=== PATIENT | male | born 1970 | race Caucasian/White ===

== ENCOUNTER 2017-06-26 08:12 | Inpatient (IN) | payer MEDICAID ==
[~2017-06-26] VITALS: Ht 162.6 cm; Wt 68.5 kg
[2017-06-26] MEDS ORDERED: ONDANSETRON 4 MG/2 ML VIAL ONE (08:43)
[2017-06-26] MEDS ORDERED: MORPHINE SULFATE 4 MG/1 ML DISP.SYRIN ONE (08:43)
[2017-06-26] MEDS ORDERED: MORPHINE SULFATE 2 MG/1 ML DISP.SYRIN ONE (08:43)
[2017-06-26] MEDS ORDERED: MORPHINE SULFATE 2 MG/1 ML DISP.SYRIN IV ONE (08:45)
[2017-06-26] MEDS ORDERED: IV NORMAL SALINE 1000 ML BAG IV ONE (08:45)
[2017-06-26] MEDS ORDERED: ONDANSETRON 4 MG/2 ML VIAL IV ONE (08:45)
--- NOTE | 2017-06-26 08:51 | NUR ---
PT IS IN ROOM #1B. DR JENSEN EVALUATED THE PT.
[2017-06-26 09:14] LABS: BASOPHILS % (AUTO) 0.1 % (0.0-2.0); CREATININE 0.7 mg/dL (0.6-1.3); EOSINOPHILS % (AUTO) 0.1 % (0.0-7.0); HEMATOCRIT 53.1 % (36.7-47.1); HEMOGLOBIN 17.9 g/dL (12.5-16.3); LYMPHOCYTES # (AUTO) 0.8 K/uL (20.0-40.0); LYMPHOCYTES % (AUTO) 4.4 % (20.5-51.5); MEAN CORPUSCULAR HEMOGLOBIN 29.6 uug (23.8-33.4); MEAN CORPUSCULAR HGB CONC 34 g/dL (32.5-36.3); MEAN CORPUSCULAR VOLUME 88.2 fL (73.0-96.2); MONOCYTES # (AUTO) 1.2 K/uL (2.0-10.0); MONOCYTES % (AUTO) 6.5 % (0.0-11.0); NEUTROPHILS # (AUTO) 16.4 K/uL (1.8-8.9); NEUTROPHILS % (AUTO) 88.9 % (38.5-71.5); PLATELET COUNT (AUTO) 245 K/uL (152-348); RED BLOOD CELL COUNT(AUTO) 6.03 MIL/uL (4.06-5.63); WHITE BLOOD COUNT (AUTO) 18.5 K/uL (3.6-10.2)
[2017-06-26 09:19] LABS: BILIRUBIN,DIRECT 0.1 mg/dL (0.0-0.2); BILIRUBIN,TOTAL 0.7 mg/dL (0.2-1.0); TOTAL PROTEIN, SERUM 8.4 g/dL (6.4-8.2)
[2017-06-26 09:20] LABS: ETHANOL < 3 MG/DL (0-0)
--- NOTE | 2017-06-26 11:01 | NUR ---
PT REFUSED NGT INSERTION. DR JENSEN NOTIFIED.
--- NOTE | 2017-06-26 11:03 | NUR ---
REPORT WAS GIVEN TO RN M/S. PT WAS TRANSFERED TO ROOM #217.
[2017-06-26 11:54] VITALS: BP 166/103
[2017-06-26] MEDS ORDERED: HYDROMORPHONE 1 MG/1 ML DISP.SYRIN IV PRN (12:15)
[2017-06-26] MEDS: MORPHINE SULFATE 4 MG/1 ML DISP.SYRIN IV PRN ×3 (12:23→22:45)
[2017-06-26] MEDS ORDERED: ACETAMINOPHEN 650 MG SUPP.RECT RC PRN (13:30)
[2017-06-26] MEDS ORDERED: ONDANSETRON 4 MG/2 ML VIAL IV PRN (13:30)
[2017-06-26] MEDS ORDERED: ENALAPRILAT DIHYDRATE INJ 2.5 MG in IV NORMAL SALINE 50 ML IV PRN (13:30)
[2017-06-26] MEDS: PIPERACILLIN/TAZOBACTAM/D5W 50 ML IV SCH ×2 (14:30→22:42)
[2017-06-26] MEDS: IV D5 1/2 NS 1000 ML 1,000 ML IV PRN (14:30)
[2017-06-26 15:43] VITALS: BP 148/99
--- NOTE | 2017-06-26 17:00 | NUR ---
IV D/C'D. REPORT CALLED TO LUCA LAYNE AT [facility]. REFUSED ACCU CHEK AND DIURETICS PRIOR TO TRANSFER.
--- NOTE | 2017-06-26 17:45 | NUR ---
DISCHARGED TO AMBULANCE ATTENDENTS---DISCHARGED TO [facility]/AMBULANCE TO [facility].
[2017-06-26 19:03] LABS: *BILIRUBIN,URIN NEGATIVE (NEGATIVE); *BLOOD, URINE Trace-intact (NEGATIVE); *CLARITY,URINE CLEAR (CLEAR); *COLOR,URINE DARK YELLOW (YELLOW); *KETONES,URINE NEGATIVE (NEGATIVE); *PROTEIN,URINE TRACE (NEGATIVE); LEUKOCYTE ESTERASE ,URINE NEGATIVE (NEGATIVE); NITRITE, URINE NEGATIVE (NEGATIVE); PH,URINE 6.5 (5.0-8.0); UGLUCOSE NEGATIVE (NEGATIVE)
--- NOTE | 2017-06-26 19:10 | NUR ---
RECEIVED REPORT FROM DAYSHIFT NURSE. ROVERTO MONTANO. SHE SAID THAT PT WENT TO UNDERGO HIDA SCAN.
[2017-06-26 19:55] LABS: MUCUS,URINE MODERATE /LPF (0-FEW); WBC,URINE 0-3 /HPF (0-3)
--- NOTE | 2017-06-26 21:30 | NUR ---
CALLED RADIOLOGY DEPARTMENT TO ASKED UPDATE REGARDING THE PT. IF HE IS ALRIGHT AND IF THE HIDA SCAN IS FINISHED. ACOUSTICAL TILE PATTERNMAKER TOLD ME THE PT IS ON THE TABLE FOR HIDA SCAN.
[2017-06-26 22:29] VITALS: BP 149/102
--- NOTE | 2017-06-26 22:30 | NUR ---
RECEIVED PT VIA WHEELCHAIR. SHELTER ASSESSMENT DONE. IV INTACT AND PATENT. PT COMPLAINS OF PAIN. PT ON NPO. PT AWARE THAT HIS ON NPO.CALL LIGHT WITHIN REACH. BED ALARM ON AND IN LOW POSITION. WILL CONTINUE TO MONITOR
[2017-06-27] VITALS: BP 144/102
[2017-06-27] MEDS: PIPERACILLIN/TAZOBACTAM/D5W 50 ML IV SCH ×4 (00:38→19:58)
[2017-06-27] MEDS: MORPHINE SULFATE 4 MG/1 ML DISP.SYRIN IV PRN ×4 (02:23→21:45)
[2017-06-27 04:00] VITALS: BP 146/97
--- NOTE | 2017-06-27 06:15 | NUR ---
PT ON TELE: SINUS TACHY RANGE FROM 105-11O BASED ON REFRIGERATION TECHNICIAN OBSERVATION. PT SHOWS NO SIGNS OF DISTRESS. WILL ENDORSE TO DAYSHIFT NURSE.
--- NOTE | 2017-06-27 06:24 | NUR ---
PT SLEPT THROUGHOUT THE SHIFT. PT SHOWS NO SIGNS OF DISTRESS.PAIN MANAGEMENT DONE. PT IV INTACT AND PATENT.PRESCRIBED MEDICATION GIVEN. PT TOLERATED IT WELL. CALL LIGHT WITHIN REACH. BED ALARM ON AND IN LOW POSITION. WILL ENDORSE TO DAYSHIFT NURSE.
[2017-06-27 07:00] LABS: BASOPHILS % (AUTO) 0.2 % (0.0-2.0); EOSINOPHILS % (AUTO) 0.1 % (0.0-7.0); HEMATOCRIT 50.8 % (36.7-47.1); HEMOGLOBIN 17.2 g/dL (12.5-16.3); LYMPHOCYTES # (AUTO) 0.8 K/uL (20.0-40.0); LYMPHOCYTES % (AUTO) 4.3 % (20.5-51.5); MEAN CORPUSCULAR HEMOGLOBIN 29.8 uug (23.8-33.4); MEAN CORPUSCULAR HGB CONC 34 g/dL (32.5-36.3); MEAN CORPUSCULAR VOLUME 88.2 fL (73.0-96.2); MONOCYTES # (AUTO) 1.6 K/uL (2.0-10.0); MONOCYTES % (AUTO) 8.5 % (0.0-11.0); NEUTROPHILS # (AUTO) 16.7 K/uL (1.8-8.9); NEUTROPHILS % (AUTO) 86.9 % (38.5-71.5); PLATELET COUNT (AUTO) 227 K/uL (152-348); RED BLOOD CELL COUNT(AUTO) 5.76 MIL/uL (4.06-5.63); WHITE BLOOD COUNT (AUTO) 19.2 K/uL (3.6-10.2)
[2017-06-27 08:47] LABS: BILIRUBIN,TOTAL 1.7 mg/dL (0.2-1.0); CREATININE 0.8 mg/dL (0.6-1.3); PHOSPHOROUS 3.4 mg/dL (2.5-4.9); POTASSIUM 4.5 mmol/L (3.5-5.1); TOTAL PROTEIN, SERUM 7.5 g/dL (6.4-8.2)
[2017-06-27] MEDS: PANTOPRAZOLE SODIUM 40 MG VIAL IV SCH (08:56)
[2017-06-27 11:53] VITALS: BP 133/97
[2017-06-27 15:25] VITALS: BP 142/97
--- NOTE | 2017-06-27 19:20 | NUR ---
RECEIVED PT ASLEEP ON BED. ENDORSED BY DAYSHIFT NURSE THAT PT SLEPT THE WHOLE DAY AND IN PAIN. PT IV INTACT AND PATENT.BED ALARM ON AND IN LOW POSITION. WILL CONTINUE TO MONITOR.
[2017-06-27] MEDS: IV D5 1/2 NS 1000 ML 1,000 ML IV PRN (19:57)
[2017-06-27 20:43] VITALS: BP 123/90
[2017-06-27] MEDS ORDERED: MORPHINE SULFATE 4 MG/1 ML DISP.SYRIN IV ONE (22:15)
--- NOTE | 2017-06-27 22:30 | NUR ---
PT TEMP FROM WAS 99.4 AND ON IT WAS 100.1. I GAVE TYLENOL SUPPOSITORY. PT TEMP IMPROVE AND WENT DOWN TO 98.9. PT WAS GIVEN PAIN MEDICATION. CALLED DR. HOGAN AND INFORMED HIM ABOUT THE TEMPERATURE, PAIN AND TENDERNESS OF THE ABDOMEN OF THE PT. RESPONDED AND GAVE ORDER TO GIVE EXTRA DOSE OF MORPHINE. WILL CONTINUE TO MONITOR.
[2017-06-28 00:37] VITALS: BP 122/82
[2017-06-28] MEDS: PIPERACILLIN/TAZOBACTAM/D5W 50 ML IV SCH ×4 (00:38→18:35)
[2017-06-28 05:29] VITALS: BP 132/84
[2017-06-28 06:27] LABS: BILIRUBIN,TOTAL 1.2 mg/dL (0.2-1.0); CREATININE 0.8 mg/dL (0.6-1.3); MAGNESIUM 2.2 mg/dL (1.8-2.4); PHOSPHOROUS 4.1 mg/dL (2.5-4.9); POTASSIUM 3.3 mmol/L (3.5-5.1); TOTAL PROTEIN, SERUM 7.8 g/dL (6.4-8.2)
--- NOTE | 2017-06-28 06:33 | NUR ---
PT SLEPT THROUGHOUT THE SHIFT. PT IN PAIN WHENEVER YOU ASKED HIM.PT AWARE THAT HIS ON NPO. PT IV INTACT AND PATENT. PRESCRIBED MEDICATION GIVEN. PT TOLERATED IT WELL. CALL LIGHT WITHIN REACH. BED ALARM ON AND IN LOW POSITION. SAFETY AND COMFORT PROVIDED. WILL ENDORSE TO DAYSHIFT NURSE.
[2017-06-28 06:43] LABS: BASOPHILS % (AUTO) 0.1 % (0.0-2.0); EOSINOPHILS % (AUTO) 0.2 % (0.0-7.0); HEMATOCRIT 53.2 % (36.7-47.1); HEMOGLOBIN 17.5 g/dL (12.5-16.3); LYMPHOCYTES # (AUTO) 0.6 K/uL (20.0-40.0); LYMPHOCYTES % (AUTO) 3.7 % (20.5-51.5); MEAN CORPUSCULAR HEMOGLOBIN 29.5 uug (23.8-33.4); MEAN CORPUSCULAR HGB CONC 33 g/dL (32.5-36.3); MEAN CORPUSCULAR VOLUME 89.6 fL (73.0-96.2); MONOCYTES # (AUTO) 1.1 K/uL (2.0-10.0); MONOCYTES % (AUTO) 6.8 % (0.0-11.0); NEUTROPHILS % (AUTO) 89.2 % (38.5-71.5); PLATELET COUNT (AUTO) 250 K/uL (152-348); RED BLOOD CELL COUNT(AUTO) 5.94 MIL/uL (4.06-5.63); WHITE BLOOD COUNT (AUTO) 15.7 K/uL (3.6-10.2)
--- NOTE | 2017-06-28 07:30 | NUR ---
RECEIVED PATIENT IN BED WITH HIS EYES CLOSED BUT EASILY AROUSABLE ON ROUNDS REMAIN ON IVF ORDERED WITH NO S/S OF INFILTERATION ON SITE.PATIENT IS RESTIING REEDUCATED ON BEING NOTHING TO EAT OR DRINK ORDERED AND HE EXPRESSED UNDERSTANDING.
[2017-06-28] MEDS: PANTOPRAZOLE SODIUM 40 MG VIAL IV SCH (08:38)
[2017-06-28 11:55] VITALS: BP 129/84
[2017-06-28] MEDS ORDERED: POTASSIUM CHLORIDE 50 ML IV SCH (12:45)
--- NOTE | 2017-06-28 12:45 | NUR ---
DR HOGAN NOTIFIED OF POTASSIUM LEVEL OS 3.3 WITH NEW ORDERS ALSO CONFIRMED WITH JUANI SURGICAL MAINTENANCE TECHNICIAN 3RD SHIFT STATED SHE WILL BE HERE TODAY TO SEE AND EXAMINE PATIENT
[2017-06-28] MEDS ORDERED: POTASSIUM CHLORIDE 10 MEQ in IV NORMAL SALINE 50 ML IV ONE (14:00)
[2017-06-28] MEDS: MORPHINE SULFATE 4 MG/1 ML DISP.SYRIN IV PRN (14:10)
--- NOTE | 2017-06-28 15:00 | NUR ---
PATIENT SEEN AND EXAMINED BY JANEEN HURT PLANE TABLEMAN WITH NEW ORDERS AND NOTED.THE PLAN IS THAT PATIENT WILL HAVE A LAP DENISE TOMORROW AND CAN HAVE CLEAR LIQUIDS TODAY THEN NPO AFTER MID NITE AND NOTED.
[2017-06-28 15:46] VITALS: BP 129/85
[2017-06-28] MEDS: IV D5 1/2 NS 1000 ML 1,000 ML IV PRN (17:28)
--- NOTE | 2017-06-28 18:00 | NUR ---
CONSCENT OBTAINED AND DOCUMENTED PATIENT REMAIN ON CLEAR LIQUIDS ORDERED UNTIL MIDNITE.NO S/S OF ADVERSE OR ALLERGIC REACTIONS AT THIS TIME.MADE COMFORTABLE AND WILL CONTINUE TO OBSERVE.
--- NOTE | 2017-06-28 19:00 | NUR ---
RECEIVED IN BED ALERT, ORIENTED, NO SOB NO CHEST PAIN, NOTED, PATIENT NPO, COMPLAIN OF MILD PAIN, WILL MEDICATE FOR PAIN, CALL LIGHT WITHIN REACH.
[2017-06-28 20:00] VITALS: BP 100/60
[2017-06-29] MEDS: PIPERACILLIN/TAZOBACTAM/D5W 50 ML IV SCH ×4 (01:14→19:07)
[2017-06-29 05:43] VITALS: BP 125/79
--- NOTE | 2017-06-29 06:44 | NUR ---
PATIENT SLEPT MOST OF THE NIGHT, NO SOB NO CHEST PAIN NOTED, REMAIN NPO, CONT TO MONITOR. NO COMPLAIN OF PAIN AT THIS TIME. CALL, KEPT COMFORTABLE.
[2017-06-29 06:49] LABS: BASOPHILS % (AUTO) 0.3 % (0.0-2.0); EOSINOPHILS # (AUTO) 0.2 K/uL (0.0-0.7); EOSINOPHILS % (AUTO) 1.3 % (0.0-7.0); HEMATOCRIT 45.4 % (36.7-47.1); HEMOGLOBIN 15.7 g/dL (12.5-16.3); LYMPHOCYTES # (AUTO) 0.6 K/uL (20.0-40.0); LYMPHOCYTES % (AUTO) 4.9 % (20.5-51.5); MEAN CORPUSCULAR HEMOGLOBIN 30.6 uug (23.8-33.4); MEAN CORPUSCULAR HGB CONC 35 g/dL (32.5-36.3); MEAN CORPUSCULAR VOLUME 88.3 fL (73.0-96.2); MONOCYTES # (AUTO) 1.1 K/uL (2.0-10.0); MONOCYTES % (AUTO) 8.6 % (0.0-11.0); NEUTROPHILS # (AUTO) 10.5 K/uL (1.8-8.9); NEUTROPHILS % (AUTO) 84.9 % (38.5-71.5); PLATELET COUNT (AUTO) 240 K/uL (152-348); RED BLOOD CELL COUNT(AUTO) 5.14 MIL/uL (4.06-5.63); WHITE BLOOD COUNT (AUTO) 12.4 K/uL (3.6-10.2)
[2017-06-29 07:26] LABS: PHOSPHOROUS 2.4 mg/dL (2.5-4.9); POTASSIUM 3.8 mmol/L (3.5-5.1)
--- NOTE | 2017-06-29 07:35 | NUR ---
RECEIVED PATIENT IN BED AWAKE ALERT PALESTINIAN IS HIS PRIMARY LANGUAGE BUT DOES UNDERSTAND EGYPTIAN REEDUCATED THAT HE CANNOT HAVE ANY FOOD OR FLUIDS DUE TO THE SCHEDULED SURGERY TODAY AND HE EXPRESSED UNDERSTANDING.REMAIN ON IVF ORDERED WITH NO S/S OF INFILTERATION ON SITE.ALSO HAS NO ADVERSE OR ALLERGIC REACTIONS FRON HIS IV ANTIBIOTICS ORDERED NOT IN DISTRESS AT THIS TIME.WILL CONTINUE TO OBSERVE.
[2017-06-29] MEDS: PANTOPRAZOLE SODIUM 40 MG VIAL IV SCH (08:17)
[2017-06-29] MEDS: MORPHINE SULFATE 4 MG/1 ML DISP.SYRIN IV PRN ×2 (08:20→21:13)
[2017-06-29] MEDS: IV D5 1/2 NS 1000 ML 1,000 ML IV PRN ×2 (08:23→22:00)
[2017-06-29] MEDS ORDERED: LIDOCAINE HCL 2% 20 ML VIAL MC ONE (10:34)
[2017-06-29] MEDS ORDERED: KETOROLAC TROMETHAMINE 30 MG INJ IM ONE (10:34)
[2017-06-29] MEDS ORDERED: DESFLURANE ANESTHESIA GAS 240 ML BOTTLE IH ONE (10:34)
[2017-06-29] MEDS ORDERED: NEOSTIGMINE METHYLSULFATE 10 MG/10 ML VIAL IV ONE (10:34)
[2017-06-29] MEDS ORDERED: ONDANSETRON 4 MG/2 ML VIAL IV ONE (10:34)
[2017-06-29] MEDS ORDERED: GLYCOPYRROLATE 0.2 MG/ML VIAL MC ONE (10:34)
[2017-06-29] MEDS ORDERED: IV NORMAL SALINE 1000 ML BAG IV ONE (10:34)
[2017-06-29] MEDS ORDERED: DEXAMETHASONE SOD PHOSPHATE 4 MG INJ IV ONE (10:34)
[2017-06-29] MEDS ORDERED: PROPOFOL 200 MG/20 ML BOTTLE IV ONE (10:34)
[2017-06-29 11:28] VITALS: BP 117/80
--- NOTE | 2017-06-29 12:27 | NUR ---
REMAIN NOTHING BY MOUTH ORDERED AWAITING FOR SURGERY DIRECTOR OF ONLINE EDUCATION ABOUT 1500 TODAY.
[2017-06-29] MEDS ORDERED: SODIUM PHOSPHATE MM 15 MM in IV DEXTROSE 5% 250 ML IV ONE (16:00)
[2017-06-29 16:04] VITALS: BP 104/63
[2017-06-29] MEDS ORDERED: LIDOCAINE HCL 1% 20 ML VIAL ONE (16:28)
[2017-06-29] MEDS ORDERED: LIDOCAINE 1%-EPI 1:100,000 20 ML VIAL ONE (16:28)
[2017-06-29] MEDS ORDERED: BUPIVACAINE 0.25% 30 ML VIAL ONE (16:28)
--- NOTE | 2017-06-29 16:35 | NUR ---
PATIENT HAS ORDER FOR SODIUM PHOS TO BE INFUSED OVER 4 HOURS AND PER THE PORCELAIN MIXER THE DOCTOR IS RUNNING LATE AND STATED MAY BE HERE IN ABOUT AN HOUR UNABLE TO CONFIRM THE TIME SO I AM NOT ABLE TO START THE SODIUM PHOS SO PHARMACY CALLED AND NOTIFIED THAT THE TIME SHOULS BE CHANGED TO LATER TO AVOID INTERUPTION OF THE INFUSSION.
[2017-06-29] MEDS ORDERED: MIDAZOLAM HCL 2 MG/2 ML VIAL ONE (18:00)
[2017-06-29] MEDS ORDERED: SUCCINYLCHOLINE CHLORIDE 200 MG/10 ML VIAL ONE (18:01)
[2017-06-29] MEDS ORDERED: ROCURONIUM BROMIDE 50 MG/5 ML VIAL ONE (18:01)
--- NOTE | 2017-06-29 18:09 | NUR ---
PATIENT PICKED UP BY BED TO OR FOR THE PLANNED SURGERY.ZOSYN BAG THAT IS DUE AT 1930 WAS GIVEN TO THE OPERATING ROOM NURSE AND SHE WILL ADMINISTER WHEN DUE.
[2017-06-29] MEDS ORDERED: FENTANYL CITRATE 100 MCG/2 ML AMPUL ONE (19:55)
[2017-06-29] MEDS ORDERED: ACETAMINOPHEN 325 MG TABLET PO PRN (20:00)
[2017-06-29] MEDS ORDERED: HYDROMORPHONE 1 MG/1 ML DISP.SYRIN IV PRN (20:00)
[2017-06-29] MEDS ORDERED: MORPHINE SULFATE 2 MG/1 ML DISP.SYRIN IV PRN (20:15)
--- NOTE | 2017-06-29 20:58 | NUR ---
PATIENT BACK FROM PROCEDURE IN FAIR CONDITION, RECEIVED REPORT FROM OR NURSE, MEDICATED PATIENT FOR PAIN, KEPT COMFORTABLE.
[2017-06-29 21:25] VITALS: BP 141/97
[2017-06-30] MEDS: HYDROCODONE/APAP 5-325MG TABLET PO PRN (00:16)
[2017-06-30] MEDS: PIPERACILLIN/TAZOBACTAM/D5W 50 ML IV SCH ×4 (01:15→19:17)
--- NOTE | 2017-06-30 03:27 | NUR ---
TONI RICO DRAINAGE AMOUNT 40CC, PATIENT HAS ABDOMINAL DRESSING, DRESSING INTACT. CONT ON PAIN MANAGEMENT.
[2017-06-30 04:36] VITALS: BP 125/80
--- NOTE | 2017-06-30 06:24 | NUR ---
PATIENT SLEPT MOST OF THE NIGHT, NO SOB NO CHEST PAIN NOTED, CONT ON PAIN MANAGEMENT, NO COMPLAIN OF PAIN AT THIS TIME. PATIENT ON CLEAR LIQUID DIET, CALL LIGHT WHIN REACH. ABDOMEN DRESSING INTACT, TONI PRAT IN PLACE, ENDORSED TO NEXT SHIFT.
--- NOTE | 2017-06-30 07:00 | NUR ---
RECEIVED REPORT FROM PET CARE ASSOCIATE. PATIENT ON BED ASLEEP, NO ACUTE DISTRESS NOTED. IV ACCESS ON THE RIGHT FOREARM SELINE LOCK AND OIN THE RIGHT HAND, RUNNING D5 1/2 NS @80 CC.HR, INFUSING WELL. TONI RICO DRAIN INTACT AND DRAINING WELL ON RIGHT SIDE OF ABDOMEN. ON CLEAR LIQUID DIET AND STRICT I AND O. NO COMPLAINTS OF PAIN AND DISCOMFORT AT THIS TIME. COMFORT MEASURES PROVIDED. CALL LIGHT WITHIN REACH. WILL CONTINUE TO MONITOR CLOSELY.
[2017-06-30 07:12] LABS: BILIRUBIN,TOTAL 0.6 mg/dL (0.2-1.0); CREATININE 0.7 mg/dL (0.6-1.3); POTASSIUM 4.3 mmol/L (3.5-5.1); TOTAL PROTEIN, SERUM 6.8 g/dL (6.4-8.2)
[2017-06-30] MEDS: MORPHINE SULFATE 4 MG/1 ML DISP.SYRIN IV PRN ×3 (08:26→20:27)
[2017-06-30] MEDS: PANTOPRAZOLE SODIUM 40 MG VIAL IV SCH (08:26)
[2017-06-30 11:55] VITALS: BP 138/81
[2017-06-30] MEDS: IV NS 1000 ML 1,000 ML IV PRN (12:22)
--- NOTE | 2017-06-30 14:00 | NUR ---
TONI RICO DRAIN WITH INCISIONAL DRAINAGE OF 50 CC, SANGUINEOUS DRAINAGE NOTED. WILL CONTINUE TO MONITOR.
[2017-06-30 15:57] VITALS: BP 153/92
--- NOTE | 2017-06-30 17:00 | NUR ---
PATIENT SEEN AND EXAMINED BY JANEEN QUALITY TECHNICIAN, ENCOURAGED TO WALK AND USE INCENTIVE SPIROMETER. NEW ORDERS CARRIED OUT, WILL CONTINUER TO MONITOR.
--- NOTE | 2017-06-30 18:30 | NUR ---
PATIENT IN BED, ASLEEP, NO ACUTE DISTRESS NOTED. IV ACCESS ON THE RIGHT HAND AND RIGHT FOREARM, INTACT AND PATENT IVF INFUSING WELL. TONI RICO INTACT AND DRAINING WELL, 60CC SEROSANGUINEOUS DRAINAGE NOTED THROUGHOUT SHIFT. NO COMPLAINTS OF PAIN AND DISCOMFORT AT THIS TIME. ENCOURAGED TO WALK TOLERATED AND USE INCENTIVE SPIROMETER OFTEN AND EDUCATION ON HOW TO USE IS GIVEN. ALL NEEDS ATTENDED AND ANTICIPATED. CALL LIGHT WITHIN REACH WILL ENDORSE ACCORDINGLY
[2017-06-30 20:51] VITALS: BP 155/95
[2017-07-01] VITALS: BP 148/90
[2017-07-01] MEDS ORDERED: hydrALAZINE HCL 25 MG TABLET PO SCH
[2017-07-01] MEDS ORDERED: hydrALAZINE HCL 25 MG TABLET PO ONE
[2017-07-01] MEDS: PIPERACILLIN/TAZOBACTAM/D5W 50 ML IV SCH ×3 (00:39→12:31)
[2017-07-01] MEDS: IV NS 1000 ML 1,000 ML IV PRN (00:40)
[2017-07-01 05:08] VITALS: BP 138/93
[2017-07-01] MEDS: MORPHINE SULFATE 4 MG/1 ML DISP.SYRIN IV PRN (06:38)
--- NOTE | 2017-07-01 06:56 | NUR ---
PT SLEPT WELL THROUGH THE NIGHT AND WAS EASILY AWOKEN, PT COMPLAINED OF ABDOMINAL PAIN, MEDICATION WAS GIVEN AND WAS EFFECTIVE. PT DENIED HAVING ANY DIFFICULTY BREATHING. PT'S LENARD DRAIN HAD SEROSANGUINEOUS FLUID OUTPUT, 100ML TOTAL OUT. DRESSING IS DRY AND CLEAN. ALL NEEDS MET, SAFETY MEASURES ARE IN PLACE, CALL LIGHT WITHIN REACH, BED ALARM IS ON.
[2017-07-01 07:39] LABS: BASOPHILS % (AUTO) 0.4 % (0.0-2.0); EOSINOPHILS # (AUTO) 0.1 K/uL (0.0-0.7); EOSINOPHILS % (AUTO) 1.2 % (0.0-7.0); HEMATOCRIT 45.1 % (36.7-47.1); HEMOGLOBIN 15.1 g/dL (12.5-16.3); LYMPHOCYTES % (AUTO) 9.1 % (20.5-51.5); MEAN CORPUSCULAR HEMOGLOBIN 29.6 uug (23.8-33.4); MEAN CORPUSCULAR HGB CONC 34 g/dL (32.5-36.3); MEAN CORPUSCULAR VOLUME 88.2 fL (73.0-96.2); MONOCYTES % (AUTO) 8.9 % (0.0-11.0); NEUTROPHILS # (AUTO) 8.7 K/uL (1.8-8.9); NEUTROPHILS % (AUTO) 80.4 % (38.5-71.5); PLATELET COUNT (AUTO) 317 K/uL (152-348); RED BLOOD CELL COUNT(AUTO) 5.12 MIL/uL (4.06-5.63); WHITE BLOOD COUNT (AUTO) 10.9 K/uL (3.6-10.2)
[2017-07-01 07:47] LABS: CARBON DIOXIDE 22 mmol/L (21-32); CHLORIDE 101 mmol/L (98-107); CREATININE 0.6 mg/dL (0.6-1.3); GLUCOSE 118 mg/dL (74-106); POTASSIUM 3.7 mmol/L (3.5-5.1); UREA NITROGEN, BLOOD 11 mg/dL (7-18)
[2017-07-01] MEDS: PANTOPRAZOLE SODIUM 40 MG VIAL IV SCH (08:20)
[2017-07-01] MEDS ORDERED: PANTOPRAZOLE SODIUM 40 MG VIAL IV SCH (09:10)
[2017-07-01 11:38] VITALS: BP 125/78
[2017-07-01] MEDS ORDERED: METR500T PO (12:48)
[2017-07-01] MEDS ORDERED: LEVO750T46 PO (12:48)
[2017-07-01] MEDS ORDERED: HYDR-3326 PO (12:48)
[2017-07-01] MEDS: HYDROCODONE/APAP 5-325MG TABLET PO PRN (14:09)
--- NOTE | 2017-07-01 14:30 | NUR ---
Dressing changed on the right mid abdomen per MD's order. Patient teaching provided for home care on tino drain and dressing. Return demonstration done. Patient verbalized understanding. Friend at bedside.
--- NOTE | 2017-07-01 14:56 | NUR ---
Patient discharged to home. Belonging list done, iv access removed, id band removed. Patient left the unit via wheelchair, accompanied and transported by friend Inocente. Discharge teachings/instructions provided, patient/family verbalized understanding. Prescription given to patient/friend. Follow up 1-2 weeks with MD. MD's information provided to patient.
== END 2017-07-01 15:00 | disposition home or self-care (01) | DRG 710 ==
LOC: ER 08:13 → MED 11:02 → TELE 16:31 → MED 06-28 12:11
PROVIDERS: ADMIT Internal Medicine; ATTEND Internal Medicine
PROC: 0FT44ZZ Resection of Gallbladder, Percutaneous Endoscopic Approach (ICD-10-PCS; principal; 2017-06-29 18:28)
PROC: 0FB04ZX Excision of Liver, Percutaneous Endoscopic Approach, Diagnostic (ICD-10-PCS; principal; 2017-06-29 18:28)
DX: A41.9 Sepsis, unspecified organism (principal); K56.609 Unspecified intestinal obstruction, unspecified as to partial versus complete obstruction; E44.0 Moderate protein-calorie malnutrition; I15.8 Other secondary hypertension; K80.01 Calculus of gallbladder with acute cholecystitis with obstruction; E87.1 Hypo-osmolality and hyponatremia; Z68.25 Body mass index [BMI] 25.0-25.9, adult; E87.6 Hypokalemia; K76.9 Liver disease, unspecified; E86.1 Hypovolemia; R74.0 Nonspecific elevation of levels of transaminase and lactic acid dehydrogenase [LDH]; R73.9 Hyperglycemia, unspecified
CPT/HCPCS: 36415; 71045; 78445; 83605; 83690; 83735; 84100; 85025; 85730; 87086; 93005; A4663; A9537; C9113; G0480; J0330; J1100; J1885; J2250; J2270; J2405; J2543; J2710; J3010; J3480; J3490; J7030; J7060

== ENCOUNTER 2017-07-14 09:25 | Inpatient (IN) | payer MEDICAID ==
[~2017-07-14] VITALS: Ht 157.5 cm; Wt 65.8 kg
[~2017-07-14 09:25] MED LIST: HYDR-3326 PO; LEVO750T46 PO; METR500T PO
[2017-07-14] MEDS ORDERED: IBUP-1955 PO (09:44)
[2017-07-14] MEDS ORDERED: IV NORMAL SALINE 1000 ML BAG IV ONE (10:00)
--- NOTE | 2017-07-14 10:07 | NUR ---
PT has yellow discharge at the site of incision, on rt side of abd where LENARD meets skin.
[2017-07-14 10:10] LABS: BASOPHILS # (AUTO) 0.1 K/uL (0.0-8.0); BASOPHILS % (AUTO) 0.5 % (0.0-2.0); EOSINOPHILS # (AUTO) 0.2 K/uL (0.0-0.7); HEMATOCRIT 45.8 % (36.7-47.1); HEMOGLOBIN 15.2 g/dL (12.5-16.3); LYMPHOCYTES % (AUTO) 6.1 % (20.5-51.5); MEAN CORPUSCULAR HEMOGLOBIN 29.4 uug (23.8-33.4); MEAN CORPUSCULAR HGB CONC 33 g/dL (32.5-36.3); MEAN CORPUSCULAR VOLUME 88.6 fL (73.0-96.2); MONOCYTES % (AUTO) 6.2 % (0.0-11.0); NEUTROPHILS # (AUTO) 14.6 K/uL (1.8-8.9); NEUTROPHILS % (AUTO) 86.2 % (38.5-71.5); PLATELET COUNT (AUTO) 396 K/uL (152-348); RED BLOOD CELL COUNT(AUTO) 5.16 MIL/uL (4.06-5.63); WHITE BLOOD COUNT (AUTO) 16.9 K/uL (3.6-10.2)
--- NOTE | 2017-07-14 10:11 | NUR ---
DR Patel at the bedside for MSE.
[2017-07-14 10:13] LABS: POTASSIUM 4.4 mmol/L (3.5-5.1)
--- NOTE | 2017-07-14 10:14 | NUR ---
Pt out of ER for Ct.
[2017-07-14 10:25] LABS: BILIRUBIN,DIRECT 0.2 mg/dL (0.0-0.2); BILIRUBIN,TOTAL 0.9 mg/dL (0.2-1.0); TOTAL PROTEIN, SERUM 7.4 g/dL (6.4-8.2)
[2017-07-14] MEDS ORDERED: ONDANSETRON 4 MG/2 ML VIAL IV ONE (10:30)
[2017-07-14] MEDS ORDERED: HYDROMORPHONE 1 MG/1 ML DISP.SYRIN IV ONE (10:30)
[2017-07-14] MEDS ORDERED: ONDANSETRON 4 MG/2 ML VIAL ONE (10:34)
[2017-07-14] MEDS ORDERED: HYDROMORPHONE 2 MG/1 ML DISP.SYRIN ONE (10:34)
[2017-07-14] MEDS ORDERED: PIPERACILLIN SODIUM/TAZOBACTAM 3.375 G in IV DEXTROSE 5% 50 ML IV ONE (11:00)
[2017-07-14] MEDS ORDERED: VANCOMYCIN IV 1,000 MG in IV DEXTROSE 5% 250 ML IV ONE (11:00)
[2017-07-14] MEDS ORDERED: VANCOMYCIN IV 200 ML ONE (11:26)
[2017-07-14] MEDS ORDERED: PIPERACILLIN/TAZOBACTAM/D5W 50 ML IV ONE (11:26)
[2017-07-14] MEDS ORDERED: ONDANSETRON 4 MG/2 ML VIAL IV PRN (11:30)
[2017-07-14] MEDS ORDERED: ACETAMINOPHEN 325 MG TABLET PO PRN (11:30)
[2017-07-14] MEDS ORDERED: Z GUARD REMEDY PASTE 57 GM TUBE TOP PRN (11:30)
[2017-07-14] MEDS ORDERED: MAGNESIUM HYDROXIDE 30 ML LIQUID UDC PO PRN (11:30)
[2017-07-14] MEDS ORDERED: MORPHINE SULFATE 2 MG/1 ML DISP.SYRIN IV PRN (11:30)
--- NOTE | 2017-07-14 11:41 | NUR ---
Culture swab collected from incision site and sent to Lab, as well as MRSA.
[2017-07-14] MEDS ORDERED: PIPERACILLIN SODIUM/TAZOBACTAM 3.375 G in IV DEXTROSE 5% 50 ML IV SCH (12:00)
--- NOTE | 2017-07-14 12:00 | NUR ---
Received patient from ER via gurney in no acute distress. No SOB noted. patient still c/o abdominal pain 8/10, LENARD drain on right quadrant noted with purulent/yellow drainage. Incision site noted with redness and scant purulent discharge. Dressing was placed. IV site on LFA gauge 20 patent, IV Vanco running. No A/R noted. Complete body assessment was done noted with right abdominal incision site, skin is otherwise intact. Medicated for pain and was effective. All needs attended and met. Call light within reach. Will continue to monitor.
[2017-07-14 12:15] VITALS: BP 104/71
--- NOTE | 2017-07-14 12:43 | NUR ---
Pharmacy clinical notes ( vancomycin dosing) S: 47 Yo male with history of recent arthroscopic cholecystectomy who presented to emergency room complaining of worsening abdominal pain with discolored drainage from his LENARD drain. O: BUN/SCR 14/1.0; WBC 16.9, TEMP 98.4, DOSING WT 140 lbs A/P: pt received Vancomycin 1gm in ER @ 11:59 will continue with Vancomycn 1 gm IVPB Q13h ; estimated peak 40and trough 18 will order trough prior to 4th dose (not ordered in [facility]) and adjust the dose if necessary.
[2017-07-14] MEDS: MORPHINE SULFATE 4 MG/1 ML DISP.SYRIN IV PRN ×3 (13:42→22:47)
[2017-07-14] MEDS: IV NS 1000 ML 1,000 ML IV PRN ×2 (13:50→20:23)
[2017-07-14 15:39] VITALS: BP 95/61
--- NOTE | 2017-07-14 15:52 | NUR ---
REASSESSMENT 1011, 1105, 1106, 1128 FROM ER
[2017-07-14] MEDS: PIPERACILLIN SODIUM/TAZOBACTAM 3.375 G in IV DEXTROSE 5% 50 ML IV SCH (17:31)
[2017-07-14 18:01] LABS: *BILIRUBIN,URIN NEGATIVE (NEGATIVE); *BLOOD, URINE NEGATIVE (NEGATIVE); *CLARITY,URINE CLEAR (CLEAR); *KETONES,URINE NEGATIVE (NEGATIVE); *PROTEIN,URINE 1+ (NEGATIVE); LEUKOCYTE ESTERASE ,URINE NEGATIVE (NEGATIVE); NITRITE, URINE NEGATIVE (NEGATIVE); PH,URINE 5.5 (5.0-8.0); UGLUCOSE TRACE (NEGATIVE)
--- NOTE | 2017-07-14 18:15 | NUR ---
ROSEMARY Kwon for Dr. Jean was in the unit to see patient. LENARD drain was pulled out, LENARD drain output culture was collected, order in place. wound dressing in place. Patient tolerated the procedure well. Medicated for pain and was effective. Will continue to monitor.
[2017-07-14 18:28] LABS: *COLOR,URINE DARK YELLOW (YELLOW)
[2017-07-14 18:29] LABS: MUCUS,URINE MODERATE /LPF (0-FEW); WBC,URINE 0-3 /HPF (0-3)
--- NOTE | 2017-07-14 20:28 | NUR ---
Received patient in bed awake & alert no SOB denies chest pain. Still c/o abdominal discomfort but bearable. Has low grade fever 110.5 F temp. Tylenol 650 mg po was given, cooling measures applied. Sinus rhythm sinus tach on the monitor. Repositioned in bed, kept comfortable. Addendum: 07/14/17 at 2031 by DANA SHARMA RN Pls disregard above notes, wrong entry of body temp.
--- NOTE | 2017-07-14 20:32 | NUR ---
Received patient in bed awake & alert no SOB denies chest pain. Still c/o abdominal discomfort but bearable. Has low grade fever 100.5 F temp. Tylenol 650 mg po was given, cooling measures applied. Sinus rhythm sinus tach on the monitor. Repositioned in bed, kept comfortable
[2017-07-14 20:52] VITALS: BP 98/60
[2017-07-15] VITALS: BP 103/67
--- NOTE | 2017-07-15 | NUR ---
Afebrile 98.1 F. Medicated for pain PRN, kept comfortable. Sinus tach on the monitor 103bpm. Patient resting comfortable.
[2017-07-15] MEDS: PIPERACILLIN SODIUM/TAZOBACTAM 3.375 G in IV DEXTROSE 5% 50 ML IV SCH ×5 (00:20→23:33)
[2017-07-15] MEDS: VANCOMYCIN IV 1 G in PREMIXED 0 EACH IV SCH ×2 (00:22→15:22)
[2017-07-15 04:00] VITALS: BP 103/69
[2017-07-15] MEDS: IV NS 1000 ML 1,000 ML IV PRN ×2 (05:27→20:53)
[2017-07-15 06:16] LABS: CREATININE 0.8 mg/dL (0.6-1.3); POTASSIUM 4.2 mmol/L (3.5-5.1)
[2017-07-15 06:19] LABS: BASOPHILS # (AUTO) 0.1 K/uL (0.0-8.0); BASOPHILS % (AUTO) 0.5 % (0.0-2.0); EOSINOPHILS # (AUTO) 0.2 K/uL (0.0-0.7); EOSINOPHILS % (AUTO) 1.2 % (0.0-7.0); HEMOGLOBIN 13.6 g/dL (12.5-16.3); LYMPHOCYTES # (AUTO) 0.9 K/uL (20.0-40.0); LYMPHOCYTES % (AUTO) 6.2 % (20.5-51.5); MEAN CORPUSCULAR HGB CONC 34 g/dL (32.5-36.3); MEAN CORPUSCULAR VOLUME 88.1 fL (73.0-96.2); MONOCYTES # (AUTO) 1.1 K/uL (2.0-10.0); MONOCYTES % (AUTO) 7.5 % (0.0-11.0); NEUTROPHILS % (AUTO) 84.6 % (38.5-71.5); PLATELET COUNT (AUTO) 370 K/uL (152-348); RED BLOOD CELL COUNT(AUTO) 4.54 MIL/uL (4.06-5.63); WHITE BLOOD COUNT (AUTO) 14.2 K/uL (3.6-10.2)
[2017-07-15 06:20] LABS: MAGNESIUM 1.7 mg/dL (1.8-2.4); PHOSPHOROUS 3.5 mg/dL (2.5-4.9)
[2017-07-15] MEDS: MORPHINE SULFATE 4 MG/1 ML DISP.SYRIN IV PRN ×2 (07:38→16:34)
--- NOTE | 2017-07-15 07:47 | NUR ---
Awake, alert, complaining of severe pain. Morphine IV given. NPO reinstructed and maintained. IVF infusing
--- NOTE | 2017-07-15 11:46 | NUR ---
Clinical pharmacy note-Vancomycin dosing per pharmacy Subjective: To continue Vancomycin dosing on this 47 yo male patient for Empiric therapy (Status post cholecystectomy: Rule out intra-abdominal infection) Objective: BUN 55 Scr 8.8 WBC 8.6 temp 98.7 ht 1587 cm wt 65.7 kg Assessment/Plan: Will continue same dose of vanc 1 gm IVPB q13 h for today. 3rd dose is due today at 1400. Will order vanco trough level before 4th dose (ordered for 07/16 at 0230-RN has been informed to hold 3am dose if trough above 20 mcg/ml ) Pharmacy shall review the level in am & adjust the dose if needed. Will follow up
[2017-07-15] MEDS: MAGNESIUM SULFATE/D5W 100 ML IV SCH ×2 (12:58→14:13)
--- NOTE | 2017-07-15 14:17 | NUR ---
Received call from pharmacy, patient scheduled for Vanco trough at 230AM; Vanco dose at 3AM to be hold if Vanco trough is above 20. Will endorse to cnc machinist 2nd shift RN.
[2017-07-15 15:11] VITALS: BP 103/64
[2017-07-15 20:00] VITALS: BP 123/58
--- NOTE | 2017-07-15 20:45 | NUR ---
PT'S A/A/O X4,ON CLEAR LIQUID DIET AND TOLERATED WELL NOTED.MAINTAINED IVF ORDER.CLEAN AND DRY AT THE RIGHT ABDOMINAL SITE(S/P LENARD REMOVAL TODAY).MAINTAINED IVF ORDER.KEPT COMFORT.CALL-LIGHT WITHIN REACH.
[2017-07-15] MEDS: HYDROCODONE/APAP 5-325MG TABLET PO PRN (20:53)
[2017-07-16] MEDS: VANCOMYCIN IV 1 G in PREMIXED 0 EACH IV SCH (03:00)
[2017-07-16 04:00] VITALS: BP 107/67
[2017-07-16] MEDS: PIPERACILLIN SODIUM/TAZOBACTAM 3.375 G in IV DEXTROSE 5% 50 ML IV SCH ×2 (05:27→11:08)
[2017-07-16] MEDS: MORPHINE SULFATE 4 MG/1 ML DISP.SYRIN IV PRN (05:35)
[2017-07-16 06:15] LABS: CARBON DIOXIDE 26 mmol/L (21-32); CHLORIDE 99 mmol/L (98-107); CREATININE 0.6 mg/dL (0.6-1.3); GLUCOSE 152 mg/dL (74-106); POTASSIUM 3.8 mmol/L (3.5-5.1); UREA NITROGEN, BLOOD 9 mg/dL (7-18)
--- NOTE | 2017-07-16 06:15 | NUR ---
PT'S COMFORTABLE ON BED AT THIS TIME,PAIN'S CONTROLLED IN THE SHIFT NOTED.PT TOLERATED WELL WITH CLEAR LIQUID DIET ORDER.MAINTAINED IVF,NO INFILTRATION AT THE SITE.KEPT CALL-LIGHT WITHIN REACH.
--- NOTE | 2017-07-16 08:58 | NUR ---
Pt's diet is as tolerated, upgraded to a soft diet
--- NOTE | 2017-07-16 09:43 | NUR ---
Soft diet was tolerated well by patient,no N&V, and states no pain
[2017-07-16 11:22] VITALS: BP 106/42
[2017-07-16 11:50] LABS: BASOPHILS # (AUTO) 0.1 K/uL (0.0-8.0); BASOPHILS % (AUTO) 0.6 % (0.0-2.0); EOSINOPHILS # (AUTO) 0.1 K/uL (0.0-0.7); EOSINOPHILS % (AUTO) 1.5 % (0.0-7.0); HEMATOCRIT 41.1 % (36.7-47.1); LYMPHOCYTES # (AUTO) 0.9 K/uL (20.0-40.0); LYMPHOCYTES % (AUTO) 10.6 % (20.5-51.5); MEAN CORPUSCULAR HEMOGLOBIN 29.9 uug (23.8-33.4); MEAN CORPUSCULAR HGB CONC 34 g/dL (32.5-36.3); MEAN CORPUSCULAR VOLUME 87.8 fL (73.0-96.2); MONOCYTES # (AUTO) 0.8 K/uL (2.0-10.0); MONOCYTES % (AUTO) 9.2 % (0.0-11.0); NEUTROPHILS # (AUTO) 6.6 K/uL (1.8-8.9); NEUTROPHILS % (AUTO) 78.1 % (38.5-71.5); PLATELET COUNT (AUTO) 418 K/uL (152-348); RED BLOOD CELL COUNT(AUTO) 4.68 MIL/uL (4.06-5.63); WHITE BLOOD COUNT (AUTO) 8.5 K/uL (3.6-10.2)
[2017-07-16] MEDS: IV NS 1000 ML 1,000 ML IV PRN (12:03)
--- NOTE | 2017-07-16 13:04 | NUR ---
Family by bedside,pt is conversing well with family.
--- NOTE | 2017-07-16 14:37 | NUR ---
Clinical pharmacy note-Vancomycin dosing per pharmacy Subjective: To continue Vancomycin dosing on this 47 yo male patient for Empiric therapy (H/O recent acute gangrenous cholecystitis Status post cholecystectomy, Rule out intra-abdominal infection) Objective: BUN 9 Scr 0.6 WBC 14.2(07/15) temp 98.8 ht 158.7 cm wt 65.7 kg Vancomycin trough :4.2 today at 0230 Assessment/Plan: Since Vancomycin trough is not reliable low, will draw another trough prior to 5th dose today(ordered at 1530) and follow the level for further dosing. Goal trough is 15. Addendum: 07/16/17 at 1707 by JAY ADAM VANCOMYCIN TROUGH 3.4 AT 15:57. WILL CHANGE DOSE TO 1250MG IV EVERY 7 HRS(FIRST DOSE TODAY AT 1700) AND DRAW TROUGH BY 4TH DOSE(NOT DONE YET) FOR EXPECTED TROUGH AROUND 16.3
[2017-07-16 15:12] VITALS: BP 100/60
--- NOTE | 2017-07-16 17:45 | NUR ---
Wound care done as ordered: Eulonia with Betadine and cover with dry dressing
[2017-07-16] MEDS: VANCOMYCIN IV 1,250 MG in IV DEXTROSE 5% 500 ML IV SCH (18:18)
--- NOTE | 2017-07-16 18:51 | NUR ---
Pt has been compliant with nursing care and medication. No pain meds given this shift, pt states that he just feels soreness on the right side of the abdomen. Noted to have rested throughout the day.
[2017-07-16 20:00] VITALS: BP 121/77
--- NOTE | 2017-07-16 20:00 | NUR ---
PATIENT AWAKE IN BED. A/O X4. LUXEMBOURGISH SPEAKING BUT ABLE TO MAKE NEEDS KNOWN. NO C/O PAIN AT THIS TIME. DRESSING NOTED TO ABDOMEN C/D/I. CALL LIGHT IN REACH. ALL NEEDS ATTENDED.
[2017-07-16] MEDS: HYDROCODONE/APAP 5-325MG TABLET PO PRN (22:34)
[2017-07-17] MEDS: VANCOMYCIN IV 1,250 MG in IV DEXTROSE 5% 500 ML IV SCH ×3 (00:29→14:01)
[2017-07-17] MEDS: IV NS 1000 ML 1,000 ML IV PRN (00:30)
[2017-07-17 04:00] VITALS: BP 109/83
[2017-07-17 06:37] LABS: CARBON DIOXIDE 26 mmol/L (21-32); CHLORIDE 102 mmol/L (98-107); CREATININE 0.6 mg/dL (0.6-1.3); GLUCOSE 102 mg/dL (74-106); MAGNESIUM 1.9 mg/dL (1.8-2.4); PHOSPHOROUS 3.5 mg/dL (2.5-4.9); POTASSIUM 3.9 mmol/L (3.5-5.1); UREA NITROGEN, BLOOD 8 mg/dL (7-18)
[2017-07-17 06:46] LABS: BASOPHILS # (AUTO) 0.1 K/uL (0.0-8.0); BASOPHILS % (AUTO) 0.8 % (0.0-2.0); EOSINOPHILS # (AUTO) 0.3 K/uL (0.0-0.7); EOSINOPHILS % (AUTO) 3.5 % (0.0-7.0); HEMATOCRIT 41.1 % (36.7-47.1); LYMPHOCYTES # (AUTO) 1.1 K/uL (20.0-40.0); LYMPHOCYTES % (AUTO) 15.2 % (20.5-51.5); MEAN CORPUSCULAR HEMOGLOBIN 29.8 uug (23.8-33.4); MEAN CORPUSCULAR HGB CONC 34 g/dL (32.5-36.3); MEAN CORPUSCULAR VOLUME 87.7 fL (73.0-96.2); MONOCYTES # (AUTO) 0.6 K/uL (2.0-10.0); MONOCYTES % (AUTO) 8.6 % (0.0-11.0); NEUTROPHILS # (AUTO) 5.4 K/uL (1.8-8.9); NEUTROPHILS % (AUTO) 71.9 % (38.5-71.5); PLATELET COUNT (AUTO) 424 K/uL (152-348); RED BLOOD CELL COUNT(AUTO) 4.69 MIL/uL (4.06-5.63); WHITE BLOOD COUNT (AUTO) 7.5 K/uL (3.6-10.2)
--- NOTE | 2017-07-17 06:54 | NUR ---
PATIENT ASLEEP IN BED. SLEPT WELL. NO C/O PAIN AT THIS TIME. IVF INFUSING WELL. CALL LIGHT IN REACH. ALL NEEDS ATTENDED. WILL CONTINUE TO MONITOR.
--- NOTE | 2017-07-17 07:21 | NUR ---
RECEIVED PT LAYING IN BED IN A SUPINE POSITION, EASILY AROUSABLE TO NAME. PT STATES NO PAIN, NO IMMEDIATE S/S OF SOB, DISTRESS OR DISCOMFORT.
--- NOTE | 2017-07-17 08:55 | NUR ---
Pt is requesting to state to either the doctor or CHANGE MANAGEMENT SPECIALIST that he wants to be discharge today
[2017-07-17 10:54] VITALS: BP 116/66
--- NOTE | 2017-07-17 13:20 | NUR ---
Vanco Trough being done
[2017-07-17] MEDS ORDERED: CEPH-570 PO (13:46)
[2017-07-17 14:50] VITALS: BP 119/79
--- NOTE | 2017-07-17 14:50 | NUR ---
Clinical pharmacy note-Vancomycin dosing per pharmacy Subjective: To continue Vancomycin dosing on this 47 yo male patient for Empiric therapy (H/O recent acute gangrenous cholecystitis Status post cholecystectomy, Rule out intra-abdominal infection) Objective: BUN 8 Scr 0.6 WBC 7.5 temp 98.4 ht 158.7 cm wt 65.7 kg Vancomycin trough : 13.9 @1330 today Assessment/Plan: Will contnue regimen of 1250mg q7hr as renal function remains stable at this time. Pt may be discharged today, dose at 1400 sent shortly after trough result so pt may receive dose before discharge. Otherwise, will continue regimen unless renal function were to change, or consider aiming for higher trough if pt were to stay and condition unchanged. Will follow
--- NOTE | 2017-07-17 14:50 | NUR ---
Seen and evaluated by infectious disease doctor .
--- NOTE | 2017-07-17 16:22 | NUR ---
Discharge paperwork signed for, all personal belonging accounted for. Picture of wound taken as protocol before discharge. Educated the patient on the importance of finishing ATB prescription, PO Keflex. Educated the patient on s/s of infections and informed him to immediately to the ER. Also educated the patient on the importance to follow up with a primary doctor. Provided the patient with an excuse from work as requested by the patient No pain medication given this shift as of now, pt states minimal pain 1-05/29,within the patient's tolerance. No immediate s/s of pain, distress, discomfort or SOB. Addendum: 07/17/17 at 1629 by KARO PATIÑO RN Wound care done as ordered
--- NOTE | 2017-07-17 19:05 | NUR ---
There were issues with the pt's ride from his boss. Charge nurse and turn supervisor aware, taxi voucher was provided for the pt.Taxi is to arrive in 20 minutes. Pt is waiting in his room watching television. Pt states that he has a place to arrive.
== END 2017-07-17 17:45 | disposition home or self-care (01) | DRG 720 ==
LOC: ER 09:25 → TELE 11:51 → MED 07-15 14:31
PROVIDERS: ADMIT Internal Medicine; ATTEND Internal Medicine
PROC: 0WPFX0Z Removal of Drainage Device from Abdominal Wall, External Approach (ICD-10-PCS; principal; 2017-07-14)
DX: A41.9 Sepsis, unspecified organism (principal); E43 Unspecified severe protein-calorie malnutrition; K85.90 Acute pancreatitis without necrosis or infection, unspecified; D69.6 Thrombocytopenia, unspecified; K81.0 Acute cholecystitis; K83.1 Obstruction of bile duct; E88.09 Other disorders of plasma-protein metabolism, not elsewhere classified; E87.1 Hypo-osmolality and hyponatremia; E86.1 Hypovolemia; R73.03 Prediabetes; Z68.26 Body mass index [BMI] 26.0-26.9, adult; Z90.49 Acquired absence of other specified parts of digestive tract; B95.61 Methicillin susceptible Staphylococcus aureus infection as the cause of diseases classified elsewhere; L08.89 Other specified local infections of the skin and subcutaneous tissue
CPT/HCPCS: 36415; 70030-TC; 71045; 83690; 83735; 84100; 84478; 85025; 85730; 87070; 93005; A4663; J1170; J2270; J2405; J2543; J3370; J3475; J7030; J7040; J7060